=== PATIENT | female | born 1985 | race Caucasian/White ===

== ENCOUNTER → 2019-09-23 | Outpatient (CLI) | payer OTHER ==
--- NOTE | 2019-09-23 15:27 | RAD ---
PA and lateral chest x-ray without comparison for chest congestion, wheezing for 3 weeks. FINDINGS: There is no definite focal pneumonic infiltrate. No pleural effusions. Heart size within normal limits. No significant osseous abnormalities. There is a tiny calcified granuloma in the right lung base. There has been a prior cholecystectomy. IMPRESSION: 1. No acute cardiopulmonary abnormality. Electronically signed by: Alberto Pereira MD (09/23/2019 3:24 PM) [id number]
== END ==
LOC: DXRAD 14:32
PROVIDERS: ATTEND Nurse Practitioner Adult Health
DX: J98.4 Other disorders of lung (principal); J84.10 Pulmonary fibrosis, unspecified; Z90.49 Acquired absence of other specified parts of digestive tract
CPT/HCPCS: 71046

== ENCOUNTER → 2019-11-02 | Outpatient (CLI) | payer OTHER ==
--- NOTE | 2019-11-02 14:58 | RAD ---
PA and lateral chest x-ray compared to similar exam dated 09/23/2023 shortness of breath. FINDINGS: The lungs are clear. The cardiac mediastinum is grossly unremarkable. No significant soft tissue or osseous abnormalities are seen. IMPRESSION: 1. No acute cardiopulmonary abnormality. Electronically signed by: Alberto Pereira MD (11/02/2019 2:55 PM) [id number]
== END | disposition home or self-care (01) ==
LOC: DXRAD 14:34
PROVIDERS: ATTEND Physician Assistant Medical
DX: R06.02 Shortness of breath (principal)
CPT/HCPCS: 71046

== ENCOUNTER → 2019-11-03 | Outpatient (CLI) | payer OTHER ==
[~2019-11-03] MED LIST: IOHEXOL 350 MG/ML 100 ML VIAL. IV ONE
--- NOTE | 2019-11-03 16:18 | RAD ---
Chest CTA History: Shortness of air, elevated d-dimer Technique: After bolus of intravenous contrast, CT imaging was performed of the chest. Multiplanar reconstruction images to include MIP reconstruction images are submitted. Exposure: One or more of the following individualized dose reduction techniques were utilized for this examination: 1. Automated exposure control 2. Adjustment of the mA and/or kV according to patient size 3. Use of iterative reconstruction technique. Comparison: None Findings: No central pulmonary embolism is identified, somewhat limited evaluation of the more distal and smaller branches as not as well opacified with contrast during exam. Thoracic aortic caliber is within normal limits, no dissection flap. There is no lobar infiltrate, pleural or pericardial fluid, or pneumothorax. Somewhat mosaic attenuation of the lung parenchyma may be accentuated by expiratory phase of respiration during exam. Major airways are patent. No significantly enlarged nodes are identified of the chest. There may be degree of hepatic steatosis. Impression: 1. No convincing pulmonary embolism is identified, limited evaluation of the smaller and more distal branches as stated. Electronically signed by: Juvencio Trejo MD (11/03/2019 4:15 PM) [facility]
== END | disposition home or self-care (01) ==
LOC: CT 15:31
PROVIDERS: ATTEND Physician Assistant Medical
DX: R06.02 Shortness of breath (principal); R79.89 Other specified abnormal findings of blood chemistry
CPT/HCPCS: 71275; Q9967

== ENCOUNTER → 2019-12-31 | Outpatient (CLI) | payer OTHER ==
--- NOTE | 2019-12-31 08:50 | RAD ---
ABDOMEN SUPINE UPRIGHT INDICATION: Discomfort COMPARISON: CT 09/06/2013. TECHNIQUE: Supine and upright views of the abdomen were obtained. FINDINGS: Nonobstructive bowel gas pattern. No free air. Lower chest demonstrates no acute abnormality. No acute osseous abnormality. Cholecystectomy clips. Calcifications overlying the right kidney consistent with renal calculi, as seen on prior CT. IMPRESSION: No acute intra-abdominal process. Electronically signed by: Juvencio Flores MD (12/31/2019 8:47 AM) [id number]
== END ==
LOC: DXRAD 08:10
PROVIDERS: ATTEND Physician Assistant Medical
DX: N28.89 Other specified disorders of kidney and ureter (principal); Z90.49 Acquired absence of other specified parts of digestive tract
CPT/HCPCS: 74019

== ENCOUNTER 2020-01-01 08:29 | Emergency (ER) | payer OTHER ==
[~2020-01-01] VITALS: Ht 162.6 cm; Wt 102.7 kg
[2020-01-01 08:51] VITALS: BP 135/94
--- NOTE | 2020-01-01 09:03 | PHYS DOC ---
General Adult EDM: Chief Complaint: NAUSEA/VOMITING/DIARRHEA HPI: HPI: 34-year-old female presents with continued abdominal pain. The pain is a deep cramping and it is moderate to severe. She went to her primary care physician's office yesterday. They did abdominal x-rays and told her she had a bowel o bstruction. They sent her home on a clear liquid diet and told her to come the emergency room she got worse. The patient is still having vomiting and central abdominal pain around the area where she has a known hernia. Patient has not had a bowel movement since Friday. She denies fever chills. She has not been able to keep down any liquids or solids because they make her vomit. She denies fever chills. Review of Systems: Review of Systems: Constitutional: Denies fever or chills Eyes: Denies change in visual acuity HENT: Denies nasal congestion or sore throat Respiratory: Denies cough or shortness of breath Cardiovascular: Denies chest pain or edema GI: Central abdominal pain, nausea, vomiting. No BM 4 days : Denies dysuria Musculoskeletal: Denies back pain or joint pain Integument: Denies rash Neurologic: Denies headache, focal weakness or sensory changes Endocrine: Denies polyuria or polydipsia Lymphatic: Denies swollen glands Psychiatric: Denies depression or anxiety Heart Score: Risk Factors: Risk Factors: DM, Current or recent (<one month) smoker, HTN, HLP, family history of CAD, obesity. Risk Scores: Score 0 - 3: 2.5% MACE over next 6 weeks - Discharge Home Score 4 - 6: 20.3% MACE over next 6 weeks - Admit for Clinical Observation Score 7 - 10: 72.7% MACE over next 6 weeks - Early Invasive Strategies Allergies: Allergies: Allergies Coded Allergies Type Severity Reaction Last Updated Verified No Known Drug Allergies 11/03/19 No Physical Exam: PE: Constitutional: Well developed, well nourished, no acute distress, non-toxic appearance. [] HENT: Normocephalic, atraumatic, bilateral external ears normal, oropharynx moist, no oral exudates, nose normal. [] Eyes: PERRLA, EOMI, conjunctiva normal, no discharge. [] Neck: Normal range of motion, no tenderness, supple, no stridor. [] Cardiovascular: Heart rate 111, regular rhythm, no murmur [] Lungs & Thorax: Bilateral breath sounds clear to auscultation [] Abdomen: Bowel sounds normal, generally soft, tenderness around hernia site with greater firmness, no pulsatile masses. [] Skin: Warm, dry, no erythema, no rash. [] Back: No tenderness, no CVA tenderness. [] Extremities: No tenderness, no cyanosis, no clubbing, ROM intact, no edema. [] Neurologic: Alert and oriented X 3, normal motor function, normal sensory function, no focal deficits noted. [] Psychologic: Affect normal, judgement normal, mood concerned. [] EKG: EKG: [] Radiology/Procedures: Radiology/Procedures: [] Impressions: CT abdomen and pelvis with contrast PQRS statement: CT scans at this facility use dose reduction including either automated exposure control, iterative reconstructions, and /or weight based radiation dosing via mA and kV modification when appropriate to reduce radiation dose to as low as reasonably achievable. Contrast: 75 mL of opaque 300 intravenous contrast. HISTORY: Abdominal pain. Bowel obstruction. COMPARISON: CT abdomen and pelvis September 06, 2013. Abdomen findings: Right renal calculi again demonstrated. There is moderate renal hydronephrosis likely due to a ureteropelvic junction obstruction similar the prior exam, no abnormal nephrogram evident. Cholecystectomy. Left kidney, adrenal glands, liver, pancreas and spleen are unremarkable. There is a periumbilical hernia with a narrow neck of 2 cm and sac diameter of 12 x 7 cm containing a distal ileum small bowel loop entering the small bowel obstruction with dilation of the upstream small bowel diameter of 3.8 cm and mesenteric edema due to inflammation or could indicate venous congestion from the high degree of obstruction, no pneumatosis evident. Vessels unremarkable. Appendix is negative. No abdominal fluid or adenopathy. Pelvis findings: Uterus, ovaries, bladder, rectum and bones are unremarkable. IMPRESSION: 1. Periumbilical abdominal wall hernia containing a loop of the distal ileum contributing to high-grade small bowel obstruction. There is edema of the herniated small bowel loop as well as mesenteric edema of the dilated upstream small bowel which could indicate venous congestion due to the degree of obstruction. No pneumatosis of the bowel evident. 2. The appendix is negative. 3. Nonobstructing right renal calculi. Mild right renal hydronephrosis due to ureteropelvic junction obstruction, stable to prior imaging. Electronically signed by: Ac Mistry MD (01/01/2020 10:34 AM) [facility] [place] SIGNED BY: AC MISTRY MD DATE: 01/01/20 1034 CC: BRIANNE GARNER DO; FELICIA CHACON ~ Course & Med Decision Making: Course & Med Decision Making Pertinent Labs and Imaging studies reviewed. (See chart for details) The patient has had a liter of normal saline, 4 mg of Zofran, and 4 mg of morphine. The patient CT exam shows a high level small bowel obstruction. The patient has a white count of 14.9. We will do a COVID-19 screen and insert an NG tube. She will need to be transferred to for surgical consult. I spoke with Dr. Hampton and he has accepted the patient for transfer and admission. I also spoke with Dr. Potter, general surgeon, and he expects to take the patient to surgery possibly later today. I have informed the patient of this plan and she is in agreement. She will be transferred by ambulance. 27 minutes of critical care time was spent on this patient exclusive of other billable procedures. [] Dragon Disclaimer: Dragon Disclaimer: This electronic medical record was generated, in whole or in part, using a voice recognition dictation system. Departure Departure: Impression: Primary Impression: Small bowel obstruction Disposition: 02 XFER SHT-TRM HOSP Condition: STABLE Referrals: FELICIA CHACON (PCP) Justification of Admission: Justification of Admission: Justification of Admission Dx: Yes Comments: small bowel obstruction BRIANNE GARNER DO Jan 01, 2020 09:03
[2020-01-01] MEDS ORDERED: IOHEXOL 300 MG/ML 75 ML VIAL. IV ONE (09:15)
[2020-01-01] MEDS ORDERED: ONDANSETRON PF 4 MG/2 ML VIAL. IVP ONE (09:30)
[2020-01-01] MEDS ORDERED: IV NORMAL SALINE 1,000ML 1,000 ML IV ONE (09:30)
[2020-01-01] MEDS ORDERED: MORPHINE SULFATE 4 MG/ML DISP.SYRIN. IV ONE (09:30)
[2020-01-01 09:37] LABS: BASO # 0.1 x10^3/uL (0.0-0.2); BASO % 0 % (0-3); EOS % 0 % (0-3); HEMATOCRIT 49.5 % (36.0-47.0); HEMOGLOBIN 16.7 g/dL (12.0-15.5); LYMPH # 1.5 x10^3/uL (1.0-4.8); LYMPH % 10 % (24-48); MEAN CORPUSCULAR HEMOGLOBIN 28 pg (25-35); MEAN CORPUSCULAR HGB CONC 34 g/dL (31-37); MEAN CORPUSCULAR VOLUME 83 fL (79-100); MONO # 1.2 x10^3/uL (0.0-1.1); MONO % 8 % (0-9); NEUT # 12.1 x10^3uL (1.8-7.7); NEUT % 81 % (31-73); PLATELET COUNT 429 x10^3/uL (140-400); RED BLOOD COUNT 5.99 x10^6/uL (3.50-5.40); RED CELL DISTRIBUTION WIDTH 14.2 % (11.5-14.5); WHITE BLOOD COUNT 14.9 x10^3/uL (4.0-11.0)
[2020-01-01 09:41] LABS: CALCIUM 9.4 mg/dL (8.5-10.1); CREATININE 0.8 mg/dL (0.6-1.0); GFR 81.6; POTASSIUM 3.8 mmol/L (3.5-5.1)
[2020-01-01 09:47] LABS: ALBUMIN 4.2 g/dL (3.4-5.0); ALBUMIN/GLOBULIN RATIO 0.8 (1.0-1.7); TOTAL BILIRUBIN 1.2 mg/dL (0.2-1.0); TOTAL PROTEIN 9.3 g/dL (6.4-8.2)
--- NOTE | 2020-01-01 10:37 | RAD ---
CT abdomen and pelvis with contrast PQRS statement: CT scans at this facility use dose reduction including either automated exposure control, iterative reconstructions, and /or weight based radiation dosing via mA and kV modification when appropriate to reduce radiation dose to as low as reasonably achievable. Contrast: 75 mL of opaque 300 intravenous contrast. HISTORY: Abdominal pain. Bowel obstruction. COMPARISON: CT abdomen and pelvis September 06, 2013. Abdomen findings: Right renal calculi again demonstrated. There is moderate renal hydronephrosis likely due to a ureteropelvic junction obstruction similar the prior exam, no abnormal nephrogram evident. Cholecystectomy. Left kidney, adrenal glands, liver, pancreas and spleen are unremarkable. There is a periumbilical hernia with a narrow neck of 2 cm and sac diameter of 12 x 7 cm containing a distal ileum small bowel loop entering the small bowel obstruction with dilation of the upstream small bowel diameter of 3.8 cm and mesenteric edema due to inflammation or could indicate venous congestion from the high degree of obstruction, no pneumatosis evident. Vessels unremarkable. Appendix is negative. No abdominal fluid or adenopathy. Pelvis findings: Uterus, ovaries, bladder, rectum and bones are unremarkable. IMPRESSION: 1. Periumbilical abdominal wall hernia containing a loop of the distal ileum contributing to high-grade small bowel obstruction. There is edema of the herniated small bowel loop as well as mesenteric edema of the dilated upstream small bowel which could indicate venous congestion due to the degree of obstruction. No pneumatosis of the bowel evident. 2. The appendix is negative. 3. Nonobstructing right renal calculi. Mild right renal hydronephrosis due to ureteropelvic junction obstruction, stable to prior imaging. Electronically signed by: Ac Mistry MD (01/01/2020 10:34 AM) [facility]
[2020-01-01 12:11] LABS: BILIRUBIN,URINE NEG (NEG); CLARITY,URINE CLOUDY; COLOR,URINE YELLOW; GLUCOSE,URINE NEG (NEG)
[2020-01-01 12:12] LABS: NITRITE,URINE NEG (NEG)
[2020-01-01 12:21] LABS: BACTERIA,URINE MANY /HPF (0-FEW); SQUAMOUS EPITHELIAL CELL,UR MANY /LPF; WBC,URINE >40 /HPF (0-4)
[2020-01-01 14:03] LABS: U PREG PATIENT NEGATIVE (NEG)
== END 2020-01-01 13:30 | disposition short-term general hospital (02) ==
LOC: ER 08:29
DX: K56.609 Unspecified intestinal obstruction, unspecified as to partial versus complete obstruction (principal); Z03.818 Encounter for observation for suspected exposure to other biological agents ruled out
CPT/HCPCS: 36415; 74177; 80053; 81001; 81025; 83605; 85025; 85610; 85730; 87086; 96361; 96374; 96375; 99285; J2270; J2405; J7030; Q9967; U0003

== ENCOUNTER 2020-06-12 22:56 | Emergency (ER) | payer OTHER ==
[~2020-06-12] VITALS: Ht 160 cm; Wt 104.8 kg
--- NOTE | 2020-06-12 23:01 | PHYS DOC ---
Past History Past Medical History: Asthma, Bronchitis, GERD, High Cholesterol, Hypertension, Kidney Stones Past Surgical History: Cholecystectomy, Other Additional Past Surgical Histo: hernia sx Past Surgical History Bowel obstruction Alcohol Use: None General Adult HPI: HPI: ".. I am just so sick.. .I am vomiting... constantly... . It s like when I had a bowel obstruction... I had a umbilicus hernia that Dr. Potter did surgery on that [place]..." Patient is a 35 year old female who presents with above hx and complaints of nausea, vomiting, abdomen pain. Patient states she has had pain constantly since Friday. Did have some mild improvement, but got much worse this morning. Pain is localized mid abdomen. Any movement makes the pain worse. Patient has had some passage of gas and stool, however none the last 8 hours. Patient has been having dry heaves and with any intake of food or liquid. Patient does have history of prior bowel obstruction secondary to umbilicus hernia. Patient had reported surgical repair by Dr. Potter in January at [facility]. Patient has past medical history of diabetes, tobacco abuse, hypertension, hyperlipidemia, obesity, small bowel obstruction, bronchitis, kidney stones, asthma and frequent urinary tract infections. Patient denies any intake bad food. Patient denies any recent travel outside [place] area. Patient denies any specific ill contacts. The patient follows with Doris for care. Review of Systems: Review of Systems: Constitutional: Complains subjectively of fever or chills Eyes: Denies change in visual acuity HENT: Denies nasal congestion or sore throat Respiratory: Denies cough or shortness of breath Cardiovascular: Denies chest pain or edema GI: Complains of generalized abdominal pain, nausea, vomiting,. Denies bloody stools or diarrhea : Denies dysuria Musculoskeletal: Denies back pain or joint pain Integument: Denies rash Neurologic: Denies headache, focal weakness or sensory changes Endocrine: Denies polyuria or polydipsia Lymphatic: Denies swollen glands Psychiatric: Very anxious Family History: Family History: Positive for hypertension coronary artery disease Current Medications: Current Meds: See nursing for home meds Allergies: Allergies: Allergies Coded Allergies Type Severity Reaction Last Updated Verified No Known Drug Allergies 11/03/19 No Physical Exam: PE: Constitutional: in acute distress, ill in appearance. Tearful. HENT: Normocephalic, atraumatic, bilateral external ears normal, oropharynx dry, no oral exudates, nose normal. [] Eyes: PERRLA, EOMI, conjunctiva normal, no discharge. [] Neck: Normal range of motion, no tenderness, supple, no stridor. [] Cardiovascular: Tachycardia heart rate regular rhythm, no murmur, PMI to left Lungs & Thorax: Bilateral breath sounds equal apex with scattered wheezes on auscultation [] Abdomen: Bowel sounds hyperactive, distended, tympanic, , generalized tenderness, no masses, no pulsatile masses. Old surgical scar. Rebound to mid abdomen. Obese. Skin: Warm, diaphoretic, no erythema, no rash. [] Back: No tenderness, no CVA tenderness. [] Extremities: No tenderness, no cyanosis, no clubbing, ROM intact, no edema. No marked psoas sign. Neurologic: Alert and oriented X 3, moves all extremities on request, does have distal sensory,, no focal deficits noted. [] Psychologic: Affect very anxious, judgement normal, mood depressed. EKG: EKG: My interpretation EKG shows a sinus rhythm at 99 bpm. No findings acute STEMI with contralateral changes. [] Radiology/Procedures: Radiology/Procedures: [][place] [address] IMAGING REPORT Signed PATIENT: MALVIN MORENO ACCOUNT: [id number] : 1985 LOCATION: ER AGE: 35 SEX: F EXAM STATUS: REG ER ORD. PHYSICIAN: WALI ASHFORD MD REASON: bowel obstruction, OMNI 300, 75ml & OMNI 240, 30ml PROCEDURE: CT ABD PELV W/ORAL&IV CONTRAST CT ABD PELV W/ORAL IV CONTRAST History: bowel obstruction Comparison: 01/01/2020 Technique: After administration of intravenous contrast, helical CT of the abdomen and pelvis was performed from the lung bases through the ischial tuberosities. Coronal and sagittal reconstructions were obtained. 75 mL of Omnipaque 300 were used. One or more of the following dose reduction techniques were utilized: Automated exposure control (AEC), Adjustment of mA and/or kV according to patient size, Use of iterative reconstruction technique such as ASiR, CT scan done according to ALARA and image gently/image wisely Abdomen Findings: The visualized lung bases are clear. The liver, pancreas, spleen, and bilateral adrenal glands are normal. Cholecystectomy. Symmetric renal enhancement. Nonobstructive right renal calculus. Unchanged mild chronic right hydronephrosis. Several mildly dilated loops of small bowel containing fluid and gas. Normal caliber colon with air and stool throughout. Appendix is normal. There is no free fluid. There is no mesenteric or retroperitoneal adenopathy. The abdominal aorta is normal in caliber. Pelvis Findings: Urinary bladder is normal. Uterus is present. No pelvic free fluid. There is no pelvic or inguinal adenopathy. There is no acute bony abnormality. Small periumbilical hernia contains fat and fluid. IMPRESSION: 1. Several fluid-filled mildly dilated loops of small bowel. Stool and gas throughout the colon. Findings probably represent adynamic ileus, nonspecific enteritis, or potentially a partial obstruction. 2. Small amount of fat and fluid within the patient's ventral hernia, but no loops of bowel. 3. Unchanged mild chronic right hydronephrosis and nonobstructive renal calculi. Electronically signed by: Liliana Flores MD (06/13/2020 2:35 AM) [facility] [place] DICTATED AND SIGNED BY: LILIANA FLORES MD DATE: 06/13/20234 CC: WALI ASHFORD MD; FELICIA CHACON ~MTH0 0 [place] [address] IMAGING REPORT Signed PATIENT: MALVIN MORENO ACCOUNT: [id number] : 1985 LOCATION: ER AGE: 35 SEX: F EXAM STATUS: REG ER ORD. PHYSICIAN: WALI ASHFORD MD REASON: pain, n/v, hx prior bowel obstruction PROCEDURE: ACUTE ABDOMEN SERIES ACUTE ABDOMEN SERIES INDICATION: Reason: pain, n/v, hx prior bowel obstruction / Spl. Instructions: / History: . COMPARISON STUDY: 12/31/2019. FINDINGS: Lungs: Normal lung volume. No pulmonary mass or consolidation. The tracheobronchial tree and hilar structures are normal. Pleura: No pleural effusion or pneumothorax. Heart and Mediastinum: The cardiomediastinal silhouette is normal. The great vessels of the thorax are normal. Abdomen: Multiple loops of dilated bowel with air-fluid levels. Some gas noted in the colon. No free air. IMPRESSION: Multiple fluid-filled loops of dilated bowel with air-fluid levels. Small amount of gas scattered throughout the colon. This may represent adynamic ileus or obstruction. Electronically signed by: Liliana Flores MD (06/13/2020 12:21 AM) [facility] [place] DICTATED AND SIGNED BY: LILIANA FLORES MD DATE: 06/13/20 002 CC: WALI ASHFORD MD; FELICIA CHACON PA ~MTH0 0 Heart Score: HEART Score for Chest Pain: HEART Score for Chest Pain Response (Comments) Value History Slighlty/Non-Suspicious 0 ECG Normal 0 Age < 45 0 Risk Factors 1 or 2 Risk Factors 1 Troponin < Normal Limit 0 Total 1 Risk Factors: Risk Factors: DM, Current or recent (<one month) smoker, HTN, HLP, family history of CAD, obesity. Risk Scores: Score 0 - 3: 2.5% MACE over next 6 weeks - Discharge Home Score 4 - 6: 20.3% MACE over next 6 weeks - Admit for Clinical Observation Score 7 - 10: 72.7% MACE over next 6 weeks - Early Invasive Strategies Course & Med Decision Making: Course & Med Decision Making Pertinent Labs and Imaging studies reviewed. (See chart for details) Procedure Note: NG placement- (prior attempt nursing failure to pass NG) Encourage pt. to allow me to attempt passage. With application of lidocaine gel Rt. nairs, passed 14- NG into stomach with return of large amount of gastric contents.. Site verified by auscultation and follow-up abdomen film. Discussed presentation, testing and treatment plan with Dr. Hampton and . Admit to Dr. Hampton, Dr. Cabral will consult at [facility]. Lactic Acid= 1.9. At time of transfer pt did report some relief of abdomen distention after NG suctioning. Impression: 1. Nausea/ Vomiting 2. Abdomen Pain 3. Ileus 4. Hx. prior Ileus in , due Umbilicus- Underwent surgical repair 5. Leukocytosis 14.0 6. UTI [] Dragon Disclaimer: Dragon Disclaimer: This electronic medical record was generated, in whole or in part, using a voice recognition dictation system. Departure Departure: Referrals: FELICIA CHACON (PCP) Cory Disclaimer This chart was dictated in whole or in part using Voice Recognition software in a busy, high-work load, and often noisy Emergency Department environment. It may contain unintended and wholly unrecognized errors or omissions. Dragon Disclaimer This chart was dictated in whole or in part using Voice Recognition software in a busy, high-work load, and often noisy Emergency Department environment. It may contain unintended and wholly unrecognized errors or omissions. Dragon Disclaimer This chart was dictated in whole or in part using Voice Recognition software in a busy, high-work load, and often noisy Emergency Department environment. It may contain unintended and wholly unrecognized errors or omissions. WALI ASHFORD MD Jun 12, 2020 23:01
[2020-06-12] MEDS ORDERED: IV RINGERS SOLUTION,LACTATED 1,000 ML IV SCH (23:15)
[2020-06-12] MEDS ORDERED: FAMOTIDINE 20 MG/2 ML VIAL IVP ONE (23:15)
[2020-06-12] MEDS ORDERED: ONDANSETRON PF 4 MG/2 ML VIAL. IVP ONE (23:15)
[2020-06-12 23:50] LABS: BASO # 0.1 x10^3/uL (0.0-0.2); BASO % 1 % (0-3); EOS # 0.3 x10^3/uL (0.0-0.7); EOS % 2 % (0-3); HEMATOCRIT 43.1 % (36.0-47.0); LYMPH # 1.8 x10^3/uL (1.0-4.8); LYMPH % 13 % (24-48); MEAN CORPUSCULAR HEMOGLOBIN 27 pg (25-35); MEAN CORPUSCULAR HGB CONC 33 g/dL (31-37); MEAN CORPUSCULAR VOLUME 83 fL (79-100); MONO # 0.8 x10^3/uL (0.0-1.1); MONO % 6 % (0-9); NEUT # 11.1 x10^3uL (1.8-7.7); NEUT % 79 % (31-73); PLATELET COUNT 319 x10^3/uL (140-400); RED BLOOD COUNT 5.21 x10^6/uL (3.50-5.40); RED CELL DISTRIBUTION WIDTH 13.6 % (11.5-14.5)
[2020-06-12 23:56] LABS: BILIRUBIN,URINE NEG (NEG); CLARITY,URINE HAZY; COLOR,URINE YELLOW; GLUCOSE,URINE NEG (NEG); NITRITE,URINE POS (NEG)
[2020-06-12 23:56] LABS: CALCIUM 9.5 mg/dL (8.5-10.1); CREATININE 0.6 mg/dL (0.6-1.0); GFR 113.1; POTASSIUM 4.1 mmol/L (3.5-5.1)
[2020-06-12 23:57] LABS: BACTERIA,URINE MANY /HPF (0-FEW); SQUAMOUS EPITHELIAL CELL,UR OCC /LPF; WBC,URINE 20-40 /HPF (0-4)
[2020-06-12 23:59] LABS: BARBITURATES NEG (NEG); BENZODIAZEPINES NEG (NEG); CANNABINOIDS NEG (NEG); COCAINE NEG (NEG); METHADONE NEG (NEG); OPIATES NEG (NEG); PHENCYCLIDINE NEG (NEG)
[2020-06-13 00:02] LABS: AMPHETAMINE/METHAMPHETAMINE NEG (NEG)
[2020-06-13 00:05] LABS: ALBUMIN 4.1 g/dL (3.4-5.0); DIRECT BILIRUBIN 0.1 mg/dL (0.0-0.2); TOTAL BILIRUBIN 0.2 mg/dL (0.2-1.0); TOTAL PROTEIN 8.2 g/dL (6.4-8.2)
--- NOTE | 2020-06-13 00:24 | RAD ---
ACUTE ABDOMEN SERIES INDICATION: Reason: pain, n/v, hx prior bowel obstruction / Spl. Instructions: / History: . COMPARISON STUDY: 12/31/2019. FINDINGS: Lungs: Normal lung volume. No pulmonary mass or consolidation. The tracheobronchial tree and hilar structures are normal. Pleura: No pleural effusion or pneumothorax. Heart and Mediastinum: The cardiomediastinal silhouette is normal. The great vessels of the thorax are normal. Abdomen: Multiple loops of dilated bowel with air-fluid levels. Some gas noted in the colon. No free air. IMPRESSION: Multiple fluid-filled loops of dilated bowel with air-fluid levels. Small amount of gas scattered throughout the colon. This may represent adynamic ileus or obstruction. Electronically signed by: Juvencio Flores MD (06/13/2020 12:21 AM) [facility]
[2020-06-13] MEDS ORDERED: IOHEXOL 240 MG/ML 50ML VIAL. PO ONE (00:45)
[2020-06-13] MEDS ORDERED: CONTRAST GIVEN. MC PRN (00:45)
[2020-06-13] MEDS ORDERED: IOHEXOL 300 MG/ML 75 ML VIAL. IV ONE (00:45)
[2020-06-13] MEDS ORDERED: MORPHINE SULFATE 10 MG/ML SYRINGE. SQ ONE (00:45)
--- NOTE | 2020-06-13 00:50 | EKG ---
[address] [address] Test Date: 2020-06-13 Test Time: 00:43:25 Pat Name: MALVIN MORENO Department: Room: Gender: F Director Of Parks And Recreation: JESSIE : 1985 Requested By: WALI ASHFORD Order Number: [id number] Reading MD: Measurements Intervals Gary Rate: 99 P: 0 PA: 156 QRS: 47 QRSD: 94 T: 27 QT: 338 QTc: 439 Interpretive Statements SINUS RHYTHM NORMAL ECG RI6.02 No previous ECG available for comparison
[2020-06-13] MEDS ORDERED: cefTRIAXone SODIUM 1 GM VIAL ONE (01:39)
[2020-06-13] MEDS ORDERED: IV NORMAL SALINE 50ML 50 ML ONE (01:39)
--- NOTE | 2020-06-13 02:38 | RAD ---
CT ABD PELV W/ORAL IV CONTRAST History: bowel obstruction Comparison: 01/01/2020 Technique: After administration of intravenous contrast, helical CT of the abdomen and pelvis was performed from the lung bases through the ischial tuberosities. Coronal and sagittal reconstructions were obtained. 75 mL of Omnipaque 300 were used. One or more of the following dose reduction techniques were utilized: Automated exposure control (AEC), Adjustment of mA and/or kV according to patient size, Use of iterative reconstruction technique such as ASiR, CT scan done according to ALARA and image gently/image wisely Abdomen Findings: The visualized lung bases are clear. The liver, pancreas, spleen, and bilateral adrenal glands are normal. Cholecystectomy. Symmetric renal enhancement. Nonobstructive right renal calculus. Unchanged mild chronic right hydronephrosis. Several mildly dilated loops of small bowel containing fluid and gas. Normal caliber colon with air and stool throughout. Appendix is normal. There is no free fluid. There is no mesenteric or retroperitoneal adenopathy. The abdominal aorta is normal in caliber. Pelvis Findings: Urinary bladder is normal. Uterus is present. No pelvic free fluid. There is no pelvic or inguinal adenopathy. There is no acute bony abnormality. Small periumbilical hernia contains fat and fluid. IMPRESSION: 1. Several fluid-filled mildly dilated loops of small bowel. Stool and gas throughout the colon. Findings probably represent adynamic ileus, nonspecific enteritis, or potentially a partial obstruction. 2. Small amount of fat and fluid within the patient's ventral hernia, but no loops of bowel. 3. Unchanged mild chronic right hydronephrosis and nonobstructive renal calculi. Electronically signed by: Juvencio Flores MD (06/13/2020 2:35 AM) [facility]
[2020-06-13] MEDS ORDERED: LIDOCAINE 2% TOPICAL JELLY 5GM TUBE. TP ONE ×2 (02:58→03:00)
--- NOTE | 2020-06-13 03:48 | RAD ---
ACUTE ABDOMEN SERIES INDICATION: Reason: post NG / Spl. Instructions: / History: . COMPARISON STUDY: None. FINDINGS: Enteric tube terminates in the stomach Lungs: Normal lung volume. No pulmonary mass or consolidation. The tracheobronchial tree and hilar structures are normal. Pleura: No pleural effusion or pneumothorax. Heart and Mediastinum: The cardiomediastinal silhouette is normal. The great vessels of the thorax are normal. Abdomen: Persistent mildly dilated small bowel loops. IMPRESSION: Enteric tube terminates in the stomach. Persistent mildly dilated small bowel loops. Electronically signed by: Juvencio Flores MD (06/13/2020 3:45 AM) [facility]
[2020-06-13 04:54] VITALS: BP 128/78
== END 2020-06-13 05:26 | disposition short-term general hospital (02) ==
LOC: ER 22:56
DX: N39.0 Urinary tract infection, site not specified (principal); R11.2 Nausea with vomiting, unspecified; R10.84 Generalized abdominal pain; D72.828 Other elevated white blood cell count; K56.7 Ileus, unspecified; J45.909 Unspecified asthma, uncomplicated; K21.9 Gastro-esophageal reflux disease without esophagitis; E78.00 Pure hypercholesterolemia, unspecified; I10 Essential (primary) hypertension; Z87.442 Personal history of urinary calculi; Z90.49 Acquired absence of other specified parts of digestive tract; Z98.890 Other specified postprocedural states
CPT/HCPCS: 36415; 74022; 74177; 80048; 80076; 80307; 81001; 81025; 82550; 83605; 83690; 84484; 85025; 85610; 85730; 87040; 87086; 93005; 96361; 96365; 96366; 96368; 96375; 99285; J0696; J2405; J3490; J7120; Q9966; Q9967

== ENCOUNTER → 2020-11-02 | Outpatient (CLI) | payer OTHER ==
--- NOTE | 2020-11-02 13:31 | RAD ---
EXAM: Right axillary sonogram. HISTORY: Inclusion cyst. TECHNIQUE: Sonographic imaging of the right axilla at the site of palpable concern was performed. COMPARISON: None. FINDINGS: There is an 8 x 7 x 4 mm hypoechoic lesion with internal echoes within the superficial soft tissues of the right axilla at the site of palpable concern. This demonstrates no internal blood krista w. This appears to communicate via a small tract to the overlying skin surface. IMPRESSION: 8 mm lesion within the subcutaneous soft tissues of the right axilla at the site of palpa ble concern, the appearance of which favors a sebaceous/inclusion cyst or tiny abscess collection. Co ntinued clinical follow-up of palpable abnormalities is recommended. Electronically signed by: Ayesha Kwon MD (11/02/2020 1:29 PM) [id number]
== END ==
LOC: US 12:56
PROVIDERS: ATTEND Physician Assistant Medical
DX: L72.0 Epidermal cyst (principal)
CPT/HCPCS: 76881

== ENCOUNTER 2021-01-23 11:48 | Emergency (ER) | payer OTHER ==
[~2021-01-23] VITALS: Ht 157.5 cm; Wt 103.2 kg
[2021-01-23] MEDS ORDERED: ONDANSETRON PF 4 MG/2 ML VIAL. IVP ONE ×3 (12:30→15:45)
[2021-01-23] MEDS ORDERED: IV NORMAL SALINE 1,000ML 1,000 ML IV ONE (12:30)
[2021-01-23] MEDS ORDERED: 0.9 % SODIUM CHLORIDE 10 ML DISP.SYRIN. IV PRN (12:30)
[2021-01-23] MEDS ORDERED: MORPHINE SULFATE 4 MG/ML DISP.SYRIN. ONE (12:31)
[2021-01-23] MEDS: MORPHINE SULFATE 4 MG/ML DISP.SYRIN. IV/SQ PRN ×2 (12:51→15:38)
[2021-01-23] MEDS ORDERED: IOHEXOL 300 MG/ML 75 ML VIAL. IV ONE (13:00)
[2021-01-23 13:11] LABS: BASO # 0.1 x10^3/uL (0.0-0.2); BASO % 1 % (0-3); EOS % 0 % (0-3); HEMATOCRIT 42.9 % (36.0-47.0); HEMOGLOBIN 14.4 g/dL (12.0-15.5); LYMPH # 1.2 x10^3/uL (1.0-4.8); LYMPH % 7 % (24-48); MEAN CORPUSCULAR HEMOGLOBIN 27 pg (25-35); MEAN CORPUSCULAR HGB CONC 34 g/dL (31-37); MEAN CORPUSCULAR VOLUME 82 fL (79-100); MONO # 1.1 x10^3/uL (0.0-1.1); MONO % 7 % (0-9); NEUT # 15.1 x10^3uL (1.8-7.7); NEUT % 86 % (31-73); PLATELET COUNT 350 x10^3/uL (140-400); RED BLOOD COUNT 5.25 x10^6/uL (3.50-5.40); RED CELL DISTRIBUTION WIDTH 13.5 % (11.5-14.5); WHITE BLOOD COUNT 17.6 x10^3/uL (4.0-11.0)
[2021-01-23 13:19] LABS: CALCIUM 9.4 mg/dL (8.5-10.1); CREATININE 0.6 mg/dL (0.6-1.0); GFR 113.1; POTASSIUM 4.2 mmol/L (3.5-5.1)
[2021-01-23 13:23] LABS: BILIRUBIN,URINE NEG (NEG); CLARITY,URINE HAZY; COLOR,URINE YELLOW; GLUCOSE,URINE NEG (NEG)
[2021-01-23 13:24] LABS: BACTERIA,URINE FEW /HPF (0-FEW); NITRITE,URINE NEG (NEG); UROBILINOGEN,URINE 0.2 mg/dL (0.2 mg/dL)
[2021-01-23 13:25] LABS: ALBUMIN 4.2 g/dL (3.4-5.0); ALBUMIN/GLOBULIN RATIO 0.9 (1.0-1.7); TOTAL BILIRUBIN 0.7 mg/dL (0.2-1.0)
[2021-01-23 13:25] LABS: SQUAMOUS EPITHELIAL CELL,UR FEW /LPF
[2021-01-23 13:37] LABS: % LYMPHS 6 % (24-48); % MONOS 5 % (0-10); % MYELOS 1 % (0-0); % SEGS 88 % (35-66)
[2021-01-23 13:38] LABS: PLT ESTIMATE ADEQUATE (ADEQUATE)
[2021-01-23 13:38] LABS: AMPHETAMINE/METHAMPHETAMINE NEG (NEG); BARBITURATES NEG (NEG); BENZODIAZEPINES NEG (NEG); CANNABINOIDS NEG (NEG); COCAINE NEG (NEG); METHADONE NEG (NEG); OPIATES NEG (NEG); PHENCYCLIDINE NEG (NEG)
--- NOTE | 2021-01-23 13:54 | PHYS DOC ---
Past History Past Medical History: Asthma, Bronchitis, GERD, High Cholesterol, Hypertension, Kidney Stones (JOSEPH ALEGRE ELECTROLOG OPERATOR) Past Surgical History: Other Additional Past Surgical Histo: hernia, sbo (JOSEPH ALEGRE ELECTROLOG OPERATOR) Alcohol Use: None (JOSEPH ALEGRE ELECTROLOG OPERATOR) Adult General Chief Complaint Chief Complaint: ABDOMINAL PAIN HPI HPI Patient is a 35-year-old female patient with history of bronchitis, hypertension, high cholesterol, who presents to the ED today complaining of 3 out of 10 right mid abdominal pain, symptoms began this morning. Patient states she got bit by a wasp on Friday, she states she was seen at urgent care because she had developed cellulitis to the area and started on Bactrim. She states earlier this morning she developed nausea and vomiting and was seen in the ED and sent home on Zofran. She states she went to urgent care today to be evaluated for abdominal pain and was sent to the ED. Patient describes the pain as sharp and intermittent. States pushing on the abdomen around the umbilicus makes the pain worse. (JOSEPH ALEGRE ELECTROLOG OPERATOR) Review of Systems Review of Systems Constitutional: Denies fever or chills [] Eyes: Denies change in visual acuity, redness, or eye pain [] HENT: Denies nasal congestion or sore throat [] Respiratory: Denies cough or shortness of breath [] Cardiovascular: No additional information not addressed in HPI [] GI: Reports abdominal pain, nausea, vomiting, denies bloody stools or diarrhea [] : Denies dysuria or hematuria [] Musculoskeletal: Denies back pain or joint pain [] Integument: Reports insect bite with cellulitis of the left lower abdomen Neurologic: Denies headache, focal weakness or sensory changes [] All other systems were reviewed and found to be within normal limits, except as documented in this note. (JOSEPH ALEGRE ELECTROLOG OPERATOR) Current Medications Current Medications Current Medications Medications (Trade) Dose Ordered Sig/Sujey Start Time Stop Time Status Last Admin Dose Admin Iohexol (Omnipaque 300 Mg/ml) 75 ml 1X ONCE 01/23/21 13:00 01/23/21 13:02 DC Morphine Sulfate (Morphine 4mg Syringe) 4 mg STK-MED ONCE 01/23/21 12:31 01/23/21 12:31 DC Ondansetron HCl (Zofran) 4 mg 1X ONCE 01/23/21 12:30 01/23/21 12:31 DC 01/23/21 12:50 4 MG Sodium Chloride 1,000 ml @ 1,000 mls/hr 1X ONCE 01/23/21 12:30 01/23/21 13:29 DC 01/23/21 12:49 1,000 MLS/HR Sodium Chloride (Normal Saline Flush) 10 ml QSHIFT PRN 01/23/21 12:30 (JOSEPH ALEGRE ELECTROLOG OPERATOR) Allergies Allergies Allergies Coded Allergies Type Severity Reaction Last Updated Verified No Known Drug Allergies 01/23/21 No (JOSEPH ALEGRE ELECTROLOG OPERATOR) Physical Exam Physical Exam Constitutional: Well developed, well nourished, no acute distress, non-toxic appearance. [] HENT: Normocephalic, atraumatic, bilateral external ears normal, oropharynx moist, no oral exudates, nose normal. [] Eyes: PERRLA, EOMI, conjunctiva normal, no discharge. [] Neck: Normal range of motion, no tenderness, supple, no stridor. [] Cardiovascular:Heart rate regular rhythm, no murmur [] Lungs & Thorax: Bilateral breath sounds clear to auscultation [] Abdomen: Rounded abdomen. Bowel sounds normal, soft, small area of firmness noted on the right umbilica hernia region, no masses, no pulsatile masses. [] Skin: Left lower abdomen with mild area of cellulitis that appears to be improving. No drainage to the area, normal Back: No tenderness, no CVA tenderness. [] Extremities: No tenderness, no cyanosis, no clubbing, ROM intact, no edema. [] Neurologic: Alert and oriented X 3, normal motor function, normal sensory function, no focal deficits noted. [] Psychologic: Affect normal, judgement normal, mood normal. [] (JOSEPH ALEGRE ELECTROLOG OPERATOR) Current Patient Data Vital Signs Vital Signs Date Time Temp Pulse Resp B/P (MAP) Pulse Ox O2 Delivery O2 Flow Rate FiO2 01/23/21 12:51 18 98 Room Air 01/23/21 11:57 98.0 115 160/107 Lab Results Laboratory Tests Test 01/23/21 12:30 01/23/21 12:45 01/23/21 13:04 Urine Collection Type Void Urine Color Yellow Urine Clarity Hazy Urine pH 6.5 Urine Specific [place] >=1.030 Urine Protein Trace (NEG-TRACE) Urine Glucose (UA) Neg mg/dL (NEG) Urine Ketones (Stick) 15 mg/dL (NEG) Urine Blood Small (NEG) Urine Nitrite Neg (NEG) Urine Bilirubin Neg (NEG) Urine Urobilinogen Dipstick 0.2 mg/dL (0.2 mg/dL) Urine Leukocyte Esterase Neg (NEG) Urine RBC 1-2 /HPF (0-2) Urine WBC 1-4 /HPF (0-4) Urine Squamous Epithelial Cells Few /LPF Urine Bacteria Few /HPF (0-FEW) Urine Opiates Screen Neg (NEG) Urine Methadone Screen Neg (NEG) Urine Barbiturates Neg (NEG) Urine Phencyclidine Screen Neg (NEG) Urine Amphetamine/Methamphetamine Neg (NEG) Urine Benzodiazepines Screen Neg (NEG) Urine Cocaine Screen Neg (NEG) Urine Cannabinoids Screen Neg (NEG) Urine Ethyl Alcohol Neg (NEG) White Blood Count 17.6 x10^3/uL (4.0-11.0) H Red Blood Count 5.25 x10^6/uL (3.50-5.40) Hemoglobin 14.4 g/dL (12.0-15.5) Hematocrit 42.9 % (36.0-47.0) Mean Corpuscular Volume 82 fL (79-100) Mean Corpuscular Hemoglobin 27 pg (25-35) Mean Corpuscular Hemoglobin Concent 34 g/dL (31-37) Red Cell Distribution Width 13.5 % (11.5-14.5) Platelet Count 350 x10^3/uL (140-400) Neutrophils (%) (Auto) 86 % (31-73) H Lymphocytes (%) (Auto) 7 % (24-48) L Monocytes (%) (Auto) 7 % (0-9) Eosinophils (%) (Auto) 0 % (0-3) Basophils (%) (Auto) 1 % (0-3) Neutrophils # (Auto) 15.1 x10^3uL (1.8-7.7) H Lymphocytes # (Auto) 1.2 x10^3/uL (1.0-4.8) Monocytes # (Auto) 1.1 x10^3/uL (0.0-1.1) Eosinophils # (Auto) 0.0 x10^3/uL (0.0-0.7) Basophils # (Auto) 0.1 x10^3/uL (0.0-0.2) Segmented Neutrophils % 88 % (35-66) H Lymphocytes % 6 % (24-48) L Monocytes % 5 % (0-10) Myelocytes % 1 % (0-0) H Platelet Estimate Adequate (ADEQUATE) Sodium Level 137 mmol/L (136-145) Potassium Level 4.2 mmol/L (3.5-5.1) Chloride Level 100 mmol/L (98-107) Carbon Dioxide Level 26 mmol/L (21-32) Anion Gap 11 (6-14) Blood Urea Nitrogen 13 mg/dL (7-20) Creatinine 0.6 mg/dL (0.6-1.0) Estimated GFR (Cockcroft-Gault) 113.1 BUN/Creatinine Ratio 22 (6-20) H Glucose Level 109 mg/dL (70-99) H Calcium Level 9.4 mg/dL (8.5-10.1) Total Bilirubin 0.7 mg/dL (0.2-1.0) Aspartate Amino Transferase (AST) 52 U/L (15-37) H Alanine Aminotransferase (ALT) 87 U/L (14-59) H Alkaline Phosphatase 62 U/L (46-116) Total Protein 9.0 g/dL (6.4-8.2) H Albumin 4.2 g/dL (3.4-5.0) Albumin/Globulin Ratio 0.9 (1.0-1.7) L Lipase 93 U/L (73-393) POC Urine HCG, Qualitative hcg negative (Negative) (JOSEPH ALEGRE APRN) EKG EKG [] (JOSEPH ALEGRE APRN) Radiology/Procedures Radiology/Procedures []PROCEDURE: CT ABD PELV W/ IV CONTRST ONLY EXAMINATION: CT abdomen and pelvis with IV contrast. INDICATION:35 years, Female, abdominal pain, history of hernia repair and bowel resection.. TECHNIQUE: Axial CT images of the abdomen and pelvis were obtained. Coronal and sagittal reformatted performed. COMPARISON: 06/13/2020. Exposure: One or more of the following individualized dose reduction techniques were utilized for this examination: 1. Automated exposure control 2. Adjustment of the mA and/or kV according to patient size 3. Use of iterative reconstruction technique. FINDINGS: LOWER CHEST: Unremarkable. ABDOMEN/PELVIS: Diffuse hepatic steatosis. No suspicious focal hepatic lesion. Cholecystectomy. No biliary ductal dilatation. Unremarkable spleen and pancreas. No adrenal nodule. Similar prominent right pelvicalyceal system with abrupt caliber change at the ureteral pelvic junction. Unchanged few nonobstructing right nephrolithiasis with the largest measures 0.6 cm. Left kidney is unremarkable. High-grade distal small bowel obstruction with transition zone seen within the right periumbilical hernia, approximately 10 cm proximal to the ileocecal valve. The trapped loop of bowel within the hernia is surrounded by small amount of fluid within the hernial sac. Additional, diffuse mesenteric fat stranding adjacent to the hernia. Appendix is normal. Normal caliber abdominal aorta. Mesenteric arteries and portal vein are patent. No pneumoperitoneum or ascites. No lymphadenopathy in the abdomen or pelvis by size criteria. Unremarkable uterus and urinary bladder. MUSCULOSKELETAL: Right periumbilical hernia as described above. Small left periumbilical hernia is unchanged. Postsurgical changes along the anterior abdominal wall. No acute osseous process or suspicious lesion. IMPRESSION: 1. High-grade distal small bowel obstruction secondary to obstructing right periumbilical hernia. Diffuse mesenteric fat stranding along the adjacent to the hernia with small amount of fluid seen within the hernia sac, findings concerning for early ischemia. Consider correlation with lactate. 2. Similar prominent right pelvicalyceal system with abrupt changing caliber at the ureteropelvic junction, may relate to UPJ stenosis. 3. Unchanged few nonobstructing nephrolithiasis measuring up to 6 mm. 4. Other chronic/incidental findings, as described above. Electronically signed by: Hermelindo Angel MD (01/23/2021 1:57 PM) [facility] DICTATED AND SIGNED BY: HERMELINDO ANGEL MD DATE: 01/23/21 4011 CC: JOSEPH ALEGRE APRN; FELCIIA CHACON ~MTH0 0 (JOSEPH ALEGRE APRN) Heart Score C/O Chest Pain: N/A Risk Factors: Risk Factors: DM, Current or recent (<one month) smoker, HTN, HLP, family history of CAD, obesity. Risk Scores: Risk Factors: DM, Current or recent (<one month) smoker, HTN, HLP, family history of CAD, obesity. (JOSEPH ALEGRE APRN) Course & Med Decision Making Course & Med Decision Making Pertinent Labs and Imaging studies reviewed. (See chart for details) This is a 35-year-old female patient presented to the ED today with right mid abdomen pain, symptoms began this morning. Also complaining of cellulitis that began on Friday after she was bit by a wasp. She is currently on Bactrim. She states the cellulitis is actually improving. Tetanus is up-to-date CBC with a WBC of 17.6, CMP with no acute findings, CT of the abdomen and pelvis was noted for high-grade small bowel obstruction around the umbilical hernia. Possible ischemic bowel was mentioned but lactic is normal. Spoke with Dr. Shaffer who accepted patient by general surgery Spoke with Dr. Ybarra who accepted patient at [facility] (JOSEPH ALEGRE APRN) Dragon Disclaimer Dragon Disclaimer This electronic medical record was generated, in whole or in part, using a voice recognition dictation system. (JOSEPH ALEGRE APRN) Departure Departure: Impression: Primary Impression: Small bowel obstruction Additional Impression: Cellulitis of left abdominal wall Disposition: 02 SHORT TERM [facility]OSPITAL Condition: STABLE Referrals: FELICIA CHACON (PCP) Attending Signature Attending Signature I have reviewed the PA/RN PLASTICS's note and plan of care. I was available for consultation as needed during the patient's visit in the emergency department. I agree with the clinical impression, plan, and disposition. (FRANCESCA BAKER DO) Problem Qualifiers JOSEPH ALEGRE APRN Jan 23, 2021 13:54 FRANCESCA BAKER DO Jan 23, 2021 20:21
--- NOTE | 2021-01-23 13:59 | RAD ---
EXAMINATION: CT abdomen and pelvis with IV contrast. INDICATION:35 years, Female, abdominal pain, history of hernia repair and bowel resection.. TECHNIQUE: Axial CT images of the abdomen and pelvis were obtained. Coronal and sagittal reformatted performed. COMPARISON: 06/13/2020. Exposure: One or more of the following individualized dose reduction techniques were utilized for thi s examination: 1. Automated exposure control 2. Adjustment of the mA and/or kV according to patient size 3. Use of iterative reconstruction technique. FINDINGS: LOWER CHEST: Unremarkable. ABDOMEN/PELVIS: Diffuse hepatic steatosis. No suspicious focal hepatic lesion. Cholecystectomy. No biliary ductal dil atation. Unremarkable spleen and pancreas. No adrenal nodule. Similar prominent right pelvicalyceal s ystem with abrupt caliber change at the ureteral pelvic junction. Unchanged few nonobstructing right nephrolithiasis with the largest measures 0.6 cm. Left kidney is unremarkable. High-grade distal small bowel obstruction with transition zone seen within the right periumbilical he rnia, approximately 10 cm proximal to the ileocecal valve. The trapped loop of bowel within the herni a is surrounded by small amount of fluid within the hernial sac. Additional, diffuse mesenteric fat s tranding adjacent to the hernia. Appendix is normal. Normal caliber abdominal aorta. Mesenteric arteries and portal vein are patent. No pneumoperitoneum o r ascites. No lymphadenopathy in the abdomen or pelvis by size criteria. Unremarkable uterus and urin tawana bladder. MUSCULOSKELETAL: Right periumbilical hernia as described above. Small left periumbilical hernia is unchanged. Postsurg ical changes along the anterior abdominal wall. No acute osseous process or suspicious lesion. IMPRESSION: 1. High-grade distal small bowel obstruction secondary to obstructing right periumbilical hernia. Dif fuse mesenteric fat stranding along the adjacent to the hernia with small amount of fluid seen within the hernia sac, findings concerning for early ischemia. Consider correlation with lactate. 2. Similar prominent right pelvicalyceal system with abrupt changing caliber at the ureteropelvic christina ction, may relate to UPJ stenosis. 3. Unchanged few nonobstructing nephrolithiasis measuring up to 6 mm. 4. Other chronic/incidental findings, as described above. Electronically signed by: Ayush Angel MD (01/23/2021 1:57 PM) [facility]
[2021-01-23] MEDS ORDERED: PIPERACILLIN/TAZOBACTAM 3.375 GM in IV NORMAL SALINE 50ML 50 ML IV ONE (16:15)
[2021-01-23] MEDS ORDERED: IV NORMAL SALINE 50ML 50 ML ONE (17:31)
[2021-01-23] MEDS ORDERED: PIPERACILLIN/TAZOBACTAM 3.375 GM VIAL IV ONE (17:32)
[2021-01-23 19:10] VITALS: BP 140/78
== END 2021-01-23 19:48 ==
LOC: ER 11:48
DX: K56.609 Unspecified intestinal obstruction, unspecified as to partial versus complete obstruction (principal); L03.311 Cellulitis of abdominal wall; J45.909 Unspecified asthma, uncomplicated; K21.9 Gastro-esophageal reflux disease without esophagitis; E78.00 Pure hypercholesterolemia, unspecified; I10 Essential (primary) hypertension; Z87.442 Personal history of urinary calculi
CPT/HCPCS: 36415; 74177; 80053; 80307; 81001; 81025; 83605; 83690; 85007; 85025; 87040; 96361; 96365; 96375; 96376; 99285; J2270; J2405; J2543; J7030

== ENCOUNTER → 2021-01-23 | Emergency (ER) | payer OTHER ==
[~2021-01-23] MED LIST changes: -IOHEXOL 350 MG/ML 100 ML VIAL. IV ONE; +ONDANSETRON ODT 4 MG TAB.RAPDIS ONE
== END | disposition home or self-care (01) ==
LOC: ER 03:19
DX: L03.311 Cellulitis of abdominal wall (principal); T36.8X5A Adverse effect of other systemic antibiotics, initial encounter; R11.2 Nausea with vomiting, unspecified; Y92.89 Other specified places as the place of occurrence of the external cause
CPT/HCPCS: 99283